=== PATIENT | female | born 1975 | race Caucasian/White ===

== ENCOUNTER → 2016-03-28 | Outpatient (CLI) | payer BC ==
[2016-03-28 17:35] LABS: Basophils % (A) 1 %; CH 31.6; CHCM 33.4; Eosinophils # (A) 0.1 k/uL (0-0.7); Eosinophils % (A) 1 %; HCT 41.4 % (34.0-46.0); HDW 2.54; HGB 13.5 gm/dL (11.4-16.0); Luc # (Auto) 0.16; Luc % (Auto) 2; Lymphocytes # (A) 2.1 k/uL (1.0-4.8); Lymphocytes % (A) 29 %; MCH 31.1 pg (25.0-35.0); MCHC 32.7 g/dL (31.0-37.0); Mean Platelet Volume 7.1; Monocytes # (A) 0.4 k/uL (0-1.0); Monocytes % (A) 6 %; Neutrophils # (A) 4.5 k/uL (1.3-7.7); Neutrophils % (A) 62 %; RBC 4.36 m/uL (3.80-5.40); RDW 12.1 % (11.5-15.5); WBC 7.3 k/uL (3.8-10.6); WBC (Perox) 7.78
== END | disposition home or self-care (01) ==
LOC: LABWHC1 16:40
PROVIDERS: ATTEND Obstetrics & Gynecology
DX: Z01.812 Encounter for preprocedural laboratory examination (principal); N92.0 Excessive and frequent menstruation with regular cycle; Z64.0 Problems related to unwanted pregnancy
CPT/HCPCS: 36415; 85025

== ENCOUNTER 2016-04-01 10:09 | Day surgery (SDC) | payer BC ==
[2016-03-29 09:13] VITALS: BMI 23.0
[~2016-04-01 10:09] MED LIST: DEXAMETHASONE SOD PHOSPHATE 10 MG/ML 1 ML VIAL IV ONE; LACTATED RINGERS 1,000 ML IV ONE; LIDOCAINE 1% 20 ML VIAL (10MG/ML) FOR IV START INTRADERMA PRN; ONDANSETRON 4 MG/2 ML VIAL IVP ONE; Pre Op ABX Message 1 EACH MISC MISCELLANE ONE; SCOPOLAMINE 1.5MG/72HR PATCH TRANSDERM ONE
[2016-04-01 10:37] VITALS: RESP 16
[2016-04-01] MEDS ORDERED: LIDOCAINE 1% 20 ML VIAL (10MG/ML) FOR IV START INTRADERMA ONE (10:41)
[2016-04-01] MEDS ORDERED: LIDOCAINE 1% INJ 10MG/ML (20 ML MDV) ONE (10:54)
[2016-04-01] MEDS ORDERED: ROCURONIUM BROMIDE 10 MG/ML 10 ML VIAL IV ONE (10:54)
[2016-04-01] MEDS ORDERED: NEOSTIGMINE 1 MG/ML 10 ML VIAL ONE (10:54)
[2016-04-01] MEDS ORDERED: fentaNYL (PF) 50 MCG/ML 2 ML AMP ONE (10:54)
[2016-04-01] MEDS ORDERED: GLYCOPYRROLATE 0.2 MG/ML 2 ML VIAL ONE (10:54)
[2016-04-01] MEDS ORDERED: PROPOFOL 10 MG/ML 20 ML VIAL IV ONE (10:54)
[2016-04-01] MEDS ORDERED: KETOROLAC 30 MG/ML 1 ML VIAL ONE (10:54)
[2016-04-01] MEDS ORDERED: MIDAZOLAM 2 MG/2 ML VIAL ONE (10:54)
[2016-04-01] MEDS ORDERED: SUCCINYLCHOLINE CHLORIDE 100 MG/5 ML SYR IV ONE (10:54)
[2016-04-01] MEDS ORDERED: BUPIVACAIN-EPI 0.25%-1:200,000 30 ML VIAL SQ ONE ×2 (11:23→11:33)
--- NOTE | 2016-04-01 11:43 | P.OP ---
Date of Procedure: 04/01/16 Preoperative Diagnosis: Undesired fertility, hypermenorrhea. Postoperative Diagnosis: Same, normal-appearing female anatomy Procedure(s) Performed: Hysteroscopy, D&C, NovaSure ablation, laparoscopic tubal ligation with Filshie clips Anesthesia: JUSTIN Surgeon: Rach Sotelo Estimated Blood Loss (ml): 15 IV fluids (ml): 450 Urine output (ml): 150 Pathology: other (Uterine curettings) Condition: stable Disposition: PACU Description of Procedure: Patient is brought to the operating suite where the appropriate timeout is performed. Urine hCG is negative. The proper procedure patient are all identified. Patient is placed in the dorsal lithotomy position after general anesthetic is administered without difficulty. The abdomen and perineal body are prepped and draped in usual sterile fashion. The bladder is drained for approximately 150 mL of clear yellow urine. Examination under anesthesia reveals a small retroverted uterus, negative adnexa bilaterally. Weighted speculum was placed into the vagina and a double-tooth tenaculum is used to grasp the anterior lip of the cervix. Uterine depth is only 6 cm. Uterine length is 2 cm. The cervix was gently and systematically dilated with Hanks dilators. Hysteroscope was introduced and saline is infused. Cavity is distended and inspected, normal proliferative appearing tissue was noted, no obvious polyps fibroids or defects. Hysteroscope was removed. Cervix is then dilated to bolus extents and a small sharp curette is used to curettage the cavity for a small to moderate amount of tissue, sent to pathology for evaluation. NovaSure wand is then introduced seated and enabled. Uterine length 4.0 cm, width 2.5 cm. For 90 seconds and a power 55 W the procedure is carried out. When the machine turns off the wand is reduced and removed. Hysteroscope was once again introduced and the cavity is noted to be uniformly blanched. Double-tooth tenaculum is once again on the anterior lip of the cervix, the acorn cannula is placed into the cervical canal and attached to the tenaculum. Attention is then drawn to the abdomen. A small infraumbilical incision is made. There is needle was placed and placement was checked with hanging drop technique. Abdomen is insufflated under low filling pressures of approximate 6 mmHg for total of 3.5 L of CO2 gas. Veress needle was removed. Trocar is placed and placement is noted to be atraumatic. Patient is then placed in Trendelenburg position, a second incision is made suprapubically, a second trocar is placed under direct visualization and again) atraumatic. Uterus is then placed and anteverted lateral traction. The right fallopian tube is visualized to its fimbriated end, and a Filshie clip is placed in the isthmic portion of the tube, with care to traverse the entire diameter of the tube into the mesal salpinx. When this is completed, the same procedure is carried out on the left tube, again fimbriated end identified for proper placement, and clip all the way through the isthmic portion of the tube into the mesal salpinx. Bilateral ovaries are inspected and noted to be normal. Inspection of the rest of the abdomen and pelvis is negative. There are no adhesions, no evidence of endometriosis. The CO2 gas was allowed to diffuse. The trochars are removed under direct visualization and the fascial defects are clean and dry. The small incisions are closed with 4-0 Vicryl suture. Steri- Strips and Mastisol are applied to the wound. Instrumentation is removed from the vagina and the cervix is noted to be clean and dry. A padded is placed. All sponge needle and enhancement counts are correct at the end of the procedure. Patient is brought back to the recovery room in stable condition with vital signs including blood pressure of 120/69, pulse 58, 100% O2 saturation. Toradol is given prior to leaving the operative suite.
[2016-04-01 12:03] VITALS: TEMP 97.2
[2016-04-01] MEDS: HYDROmorphone 1 MG/ML 1 ML SYRINGE IVP PRN ×2 (12:03→12:12)
[2016-04-01 14:02] VITALS: BP 145/80; PULSE 46
== END 2016-04-01 15:15 | disposition home or self-care (01) ==
LOC: OR 10:09
PROVIDERS: ATTEND Obstetrics & Gynecology
DX: N92.0 Excessive and frequent menstruation with regular cycle (principal); Z30.2 Encounter for sterilization; N85.8 Other specified noninflammatory disorders of uterus; N85.00 Endometrial hyperplasia, unspecified; Z88.1 Allergy status to other antibiotic agents
CPT/HCPCS: 81025; 88305; 58558; 58671; J2250; J1100; J2710; J2405; J2001; J3010; J1885; J1170; J0330; J2704

== ENCOUNTER 2016-12-26 06:59 | Day surgery (SDC) | payer BC ==
[2016-12-24 15:06] VITALS: BMI 22.3
[~2016-12-26 06:59] MED LIST changes: -DEXAMETHASONE SOD PHOSPHATE 10 MG/ML 1 ML VIAL IV ONE; -LACTATED RINGERS 1,000 ML IV ONE; +LACTATED RINGERS 1,000 ML IV SCH; -LIDOCAINE 1% 20 ML VIAL (10MG/ML) FOR IV START INTRADERMA PRN; -ONDANSETRON 4 MG/2 ML VIAL IVP ONE; -Pre Op ABX Message 1 EACH MISC MISCELLANE ONE; -SCOPOLAMINE 1.5MG/72HR PATCH TRANSDERM ONE
[2016-12-26 07:14] VITALS: TEMP 97.1
[2016-12-26] MEDS ORDERED: LIDOCAINE 1% INJ 10MG/ML (20 ML MDV) ONE (07:45)
[2016-12-26] MEDS ORDERED: GLYCOPYRROLATE 0.2 MG/ML 2 ML VIAL ONE (07:45)
[2016-12-26] MEDS ORDERED: PROPOFOL 10 MG/ML 20 ML VIAL IV ONE (07:45)
--- NOTE | 2016-12-26 07:51 | P.GSHP ---
History of Present Illness H&P Date: 12/26/16 Chief Complaint: History of colon polyps, diarrhea 's is a 41-year-old female who presents today for colonoscopy. She's had issues with diarrhea. Patient a previous colonoscopy 3 years ago which showed adenomatous polyps. 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, colon polyps, irregular periods History of Any Multi-Drug Resistant Organisms: None Reported Past Surgical History: Appendectomy, Section, Tubal Ligation Additional Past Surgical History / Comment(s): kidney(ureter) surgery as an infant, CS x2 Past Anesthesia/Blood Transfusion Reactions: No Reported Reaction Smoking Status: Never smoker - Past Family History Mother Family Medical History: Cancer Additional Family Medical History / Comment(s): stomach cancer Medications and Allergies Home Medications Medication Instructions Recorded Confirmed Type Ibuprofen [Motrin] 200 - 400 mg PO Q6HR PRN 03/29/16 12/26/16 History L.acidoph,Paracasei, B.lactis 1 each PO DAILY 12/24/16 12/26/16 History [Probiotic] Multivitamins, Thera [Multivitamin 1 tab PO DAILY 12/24/16 12/26/16 History (formulary)] Allergies Allergy/AdvReac Type Severity Reaction Status Date / Time nitrofurantoin Allergy Rash/Hives Verified 12/24/16 14:51 [From Macrobid] Surgical - Exam Vital Signs Temp Pulse Resp BP Pulse Ox 97.1 F L 65 20 110/61 99 12/26/16 07:13 12/26/16 07:13 12/26/16 07:13 12/26/16 07:13 12/26/16 07:13 - General well developed, no distress - Eyes PERRL - ENT normal pinna - Neck no masses - Respiratory normal expansion - Cardiovascular Rhythm: regular - Abdomen Abdomen: soft, non tender Assessment and Plan Plan: History of colon polyps, diarrhea. We'll perform colonoscopy.
--- NOTE | 2016-12-26 08:11 | P.OP ---
Date of Procedure: 12/26/16 Preoperative Diagnosis: Diarrhea History of colon polyps Postoperative Diagnosis: External hemorrhoids Normal colonoscopy Random rectal biopsy Procedure(s) Performed: Colonoscopy Anesthesia: MAC Surgeon: Ever Miranda Pathology: other (Rectum) Condition: stable Disposition: PACU Description of Procedure: The patient's placed on the endoscopy table lateral position. She received IV sedation. Digital rectal exam was performed which revealed external hemorrhoids. The flexible colonoscope was then placed patient anus passed throughout the entire colon. The ileocecal valve was not clearly visualized. Several times remained to see the valve however due to tortuosity valve scope could not be placed into the area ileocecal valve. Scope was then withdrawn and the right colon transverse colon and descending colon appeared normal. The sigmoid colon was normal. The scope was then brought back the rectum and this appeared normal. Due the patient's complaints of diarrhea a random biopsies performed. Scope was then withdrawn and the external hemorrhoids were noted at the anus.
[2016-12-26] MEDS ORDERED: HYDROmorphone 1 MG/ML 1 ML SYRINGE IVP ONE (09:14)
[2016-12-26 09:44] VITALS: BP 113/74; PULSE 57; RESP 16
[2016-12-26] MEDS ORDERED: ONDANSETRON 4 MG/2 ML VIAL IVP ONE (10:00)
== END 2016-12-26 10:36 | disposition home or self-care (01) ==
LOC: ORWHC2ENDO 06:59
PROVIDERS: ATTEND Surgery
DX: R19.7 Diarrhea, unspecified (principal); K64.4 Residual hemorrhoidal skin tags; Z86.010 Personal history of colon polyps; Q43.8 Other specified congenital malformations of intestine; Z80.0 Family history of malignant neoplasm of digestive organs; Z88.1 Allergy status to other antibiotic agents
CPT/HCPCS: 81025; 88305; 45380; J2405; J2001; J1170; J2704

== ENCOUNTER 2017-01-24 01:39 | Emergency (ER) | payer BC ==
[2017-01-24 01:44] VITALS: RESP 16
[2017-01-24] MEDS ORDERED: KETOROLAC 30 MG/ML 1 ML VIAL IVP STA (02:09)
[2017-01-24] MEDS ORDERED: ONDANSETRON 4 MG/2 ML VIAL IVP STA (02:10)
--- NOTE | 2017-01-24 02:10 | ED ---
Abdominal Pain HPI - General Chief Complaint: Abdominal Pain Stated Complaint: ABD Pain, Back Pain Time Seen by Provider: 01/24/17 01:53 Source: patient Mode of arrival: ambulatory Limitations: no limitations - History of Present Illness Initial Comments: this patient is a 41-year-old woman who presents to be evaluated for lower abdominal pain. The patient relates that she has been having a few months of lower abdominal pains, that are intermittent, usually lasting from 10 minutes to one hour. Starting last night about 4-5 hours ago the pain became more constant. she states the pain is suprapubic. It is aching or cramping. This currently moderate intensity. Tonight it is accompanied by nausea. She has not noted any worsening or relieving factors. She does note that she has seen her division director, Dr. Sotelo who told her that her exam was normal, but did send a urine culture and has not heard the results of the urine culture. 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 One of her sections was complicated by injury to the bladder wall. Since that time the patient states she has intermittently had blood in her urine. MD Complaint: abdominal pain -: month(s) Location: suprapubic Radiation: back Migration to: no migration Severity: moderate Quality: aching Consistency: intermittent Improves With: nothing Worsens With: nothing Associated Symptoms: nausea - Related Data Home Medications Medication Instructions Recorded Confirmed Ibuprofen [Motrin] 200 - 400 mg PO Q6HR PRN 03/29/16 12/26/16 L.acidoph,Paracasei, B.lactis 1 each PO DAILY 12/24/16 12/26/16 [Probiotic] Multivitamins, Thera [Multivitamin 1 tab PO DAILY 12/24/16 12/26/16 (formulary)] Previous Rx's Medication Instructions Recorded Acetaminophen-Codeine 300-30mg 1 tab PO Q4H PRN #12 tablet 01/24/17 [Tylenol w/codeine #3] Ondansetron Odt [Zofran ODT] 4 mg PO Q8HR PRN #10 tab 01/24/17 Allergies Allergy/AdvReac Type Severity Reaction Status Date / Time nitrofurantoin Allergy Rash/Hives Verified 01/24/17 01:44 [From Macrobid] Review of Systems ROS Statement: Those systems with pertinent positive or pertinent negative responses have been documented in the HPI. ROS Other: All systems not noted in ROS Statement are negative. Constitutional: Denies: fever, chills Respiratory: Denies: cough, dyspnea Cardiovascular: Denies: chest pain, palpitations Gastrointestinal: Reports: abdominal pain, nausea. Denies: vomiting, diarrhea, constipation, melena, hematochezia Genitourinary: Reports: as per HPI, hematuria. 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, colon polyps, irregular periods History of Any Multi-Drug Resistant Organisms: None Reported Past Surgical History: Appendectomy, Section, Tubal Ligation Additional Past Surgical History / Comment(s): kidney(ureter) surgery as an infant, CS x2 Past Anesthesia/Blood Transfusion Reactions: No Reported Reaction Past Psychological History: No Psychological Hx Reported Smoking Status: Never smoker - Past Family History Mother Family Medical History: Cancer General Exam Limitations: no limitations General appearance: alert, in no apparent distress Head exam: Present: atraumatic, normocephalic Eye exam: Present: normal appearance. Absent: scleral icterus, conjunctival injection ENT exam: Present: normal oropharynx Neck exam: Present: normal inspection, full ROM Respiratory exam: Present: normal lung sounds bilaterally. Absent: respiratory distress, wheezes, rales, rhonchi, stridor Cardiovascular Exam: Present: regular rate, normal rhythm, normal heart sounds. Absent: systolic murmur, diastolic murmur, rubs, gallop GI/Abdominal exam: Present: soft, normal bowel sounds. Absent: distended, tenderness, guarding, rebound, rigid, organomegaly, mass, pulsatile mass, hernia Extremities exam: Present: normal inspection, normal capillary refill. Absent: pedal edema, calf tenderness Back exam: Present: normal inspection. Absent: CVA tenderness (R), CVA tenderness (L) Neurological exam: Present: alert Skin exam: Present: warm, dry, intact, normal color. Absent: rash Course Vital Signs 01/24/17 01:41 Temperature 97.6 F Pulse Rate 68 Respiratory 16 Rate Blood Pressure 146/77 O2 Sat by Pulse 100 Oximetry Medical Decision Making - Medical Decision Making this patient is a 41-year-old woman with intermittent pelvic pain that has become more consistent tonight. She has had relief of the pain and nausea with medication. Her exam is benign. At this point it seems like imaging with ultrasound would be indicated, and the patient is given prescription to come back and have this during the day. Discussed return parameters and appropriate follow-up. - Lab Data Result diagrams: 01/24/17 01:53 01/24/17 01:53 Lab Results 01/24/17 01/24/17 01/24/17 Range/Units 01:53 01:53 02:30 WBC 9.5 (3.8-10.6) k/uL RBC 4.38 (3.80-5.40) m/uL Hgb 13.4 (11.4-16.0) gm/dL Hct 41.0 (34.0-46.0) % MCV 93.7 (80.0-100.0) fL MCH 30.6 (25.0-35.0) pg MCHC 32.6 (31.0-37.0) g/dL RDW 13.5 (11.5-15.5) % Plt Count 356 (150-450) k/uL Neutrophils % 54 % Lymphocytes % 36 % Monocytes % 5 % Eosinophils % 2 % Basophils % 1 % Neutrophils # 5.2 (1.3-7.7) k/uL Lymphocytes # 3.4 (1.0-4.8) k/uL Monocytes # 0.5 (0-1.0) k/uL Eosinophils # 0.2 (0-0.7) k/uL Basophils # 0.1 (0-0.2) k/uL Sodium 138 (137-145) mmol/L Potassium 3.9 (3.5-5.1) mmol/L Chloride 104 (98-107) mmol/L Carbon Dioxide 26 (22-30) mmol/L Anion Gap 8 mmol/L BUN 18 H (7-17) mg/dL Creatinine 1.20 H (0.52-1.04) mg/dL Est GFR (MDRD) Af Amer 60 (>60 ml/min/1.73 sqM) Est GFR (MDRD) Non-Af 49 (>60 ml/min/1.73 sqM) Glucose 102 H (74-99) mg/dL Calcium 9.3 (8.4-10.2) mg/dL Total Bilirubin 0.2 (0.2-1.3) mg/dL AST 26 (14-36) U/L ALT 33 (9-52) U/L Alkaline Phosphatase 53 (38-126) U/L Total Protein 7.3 (6.3-8.2) g/dL Albumin 4.3 (3.5-5.0) g/dL Amylase 84 (30-110) U/L Lipase 193 (23-300) U/L Urine Color Colorless Urine Appearance Clear (Clear) Urine pH 6.0 (5.0-8.0) Ur Specific [place] 1.003 (1.001-1.035) Urine Protein Negative (Negative) Urine Glucose (UA) Negative (Negative) Urine Ketones Negative (Negative) Urine Blood Negative (Negative) Urine Nitrite Negative (Negative) Urine Bilirubin Negative (Negative) Urine Urobilinogen <2.0 (<2.0) mg/dL Ur Leukocyte Esterase Negative (Negative) Disposition Clinical Impression: Abdominal pain Disposition: HOME SELF-CARE Condition: Good Instructions: Abdominal Pain (ED) Prescriptions: Acetaminophen-Codeine 300-30mg [Tylenol w/codeine #3] 1 tab PO Q4H PRN #12 tablet PRN Reason: Pain Ondansetron Odt [Zofran ODT] 4 mg PO Q8HR PRN #10 tab PRN Reason: Nausea Referrals: Michi Trotter MD [Primary Care Provider] - 1-2 days
[2017-01-24 02:22] LABS: Basophils # (A) 0.1 k/uL (0-0.2); Basophils % (A) 1 %; CH 31.1; CHCM 33.3; Eosinophils # (A) 0.2 k/uL (0-0.7); Eosinophils % (A) 2 %; HDW 2.29; HGB 13.4 gm/dL (11.4-16.0); Luc # (Auto) 0.24; Luc % (Auto) 3; Lymphocytes # (A) 3.4 k/uL (1.0-4.8); Lymphocytes % (A) 36 %; MCH 30.6 pg (25.0-35.0); MCHC 32.6 g/dL (31.0-37.0); MCV 93.7 fL (80.0-100.0); Mean Platelet Volume 7.3; Monocytes # (A) 0.5 k/uL (0-1.0); Monocytes % (A) 5 %; Neutrophils # (A) 5.2 k/uL (1.3-7.7); Neutrophils % (A) 54 %; RBC 4.38 m/uL (3.80-5.40); RDW 13.5 % (11.5-15.5); WBC 9.5 k/uL (3.8-10.6)
[2017-01-24 02:31] LABS: Calcium 9.3 mg/dL (8.4-10.2); Potassium 3.9 mmol/L (3.5-5.1); Total Bilirubin 0.2 mg/dL (0.2-1.3); Total Protein 7.3 g/dL (6.3-8.2)
--- NOTE | 2017-01-24 02:34 | XR ---
EXAMINATION TYPE: XR KUB DATE OF EXAM: 01/24/2017 COMPARISON: NONE HISTORY: Abdominal pain TECHNIQUE: 2 views FINDINGS: There is no sign of intestinal obstruction or pneumoperitoneum. Fecal pattern is normal. Th ere are clips from tubal ligation. There is no sign of a mass. There are no pathologic calcifications . Lung bases are clear. IMPRESSION: Nonacute abdomen.
[2017-01-24 02:42] LABS: Appearance,Urine Clear (Clear); Bilirubin,Urine Negative (Negative); Glucose,Urine (UA) Negative (Negative); Ketones,Urine Negative (Negative); Leukocyte Esterase,Urine Negative (Negative); Nitrite,Urine Negative (Negative); Protein,Urine Negative (Negative); Specific Gravity,Urine 1.003 (1.001-1.035); UA Billing (MACRO vs. MICRO) CHEM; Urobilinogen,Urine <2.0 mg/dL (<2.0)
[2017-01-24 03:09] VITALS: BP 103/65; PULSE 60; TEMP 98
== END 2017-01-24 03:10 | disposition home or self-care (01) ==
LOC: EC 01:39
DX: R10.2 Pelvic and perineal pain (principal); R11.0 Nausea; M54.9 Dorsalgia, unspecified; Z79.899 Other long term (current) drug therapy; Z88.8 Allergy status to other drugs, medicaments and biological substances; Z90.49 Acquired absence of other specified parts of digestive tract; Z98.51 Tubal ligation status
CPT/HCPCS: 36415; 80053; 82150; 83690; 85025; 81003; 74000; 99284; 96374; 96375; J2405; J1885; 76830; 76856

== ENCOUNTER → 2017-01-24 | Outpatient (CLI) | payer BC ==
--- NOTE | 2017-01-24 16:20 | US ---
EXAMINATION TYPE: US pelvis complete transvag DATE OF EXAM: 01/24/2017 COMPARISON: NONE CLINICAL HISTORY: Pelvic Pain R10.2. Tubal ligation and endometrial ablation March 2016. Spotting TECHNIQUE: Transvaginal (TV) and Transabdominal (TA) Date of LMP: August 2016 EXAM MEASUREMENTS: Uterus: 12.6 x 5.1 x 6.5 cm Endometrial Stripe: 0.4 cm Right Ovary: 2.4 x 1.5 x 1.5 cm Left Ovary: 2.3 x 1.6 x 1.5 cm 1. Uterus: Retroverted 2. Endometrium: Large amount of Fluid/Debris within the endometrium extending in to the cervix. 3. Right Ovary: Follicle visualized measuring 1.0 x 0.6 x 0.9 cm 4. Left Ovary: Follicle visualized measuring 1.1 x 0.6 x 0.6 cm 5. Bilateral Adnexa: wnl 6. Posterior cul-de-sac: wnl IMPRESSION: 1. Fluid and Debris-filled mid endometrial canal.
== END | disposition home or self-care (01) ==
LOC: RADUSWWP 12:59
PROVIDERS: ATTEND Emergency Medicine
DX: N85.8 Other specified noninflammatory disorders of uterus (principal); R10.2 Pelvic and perineal pain
CPT/HCPCS: 76830; 76856

== ENCOUNTER → 2020-08-25 | Outpatient (CLI) | payer BC ==
--- NOTE | 2020-09-14 11:10 | HM ---
This is a 14 day event monitor report. Baseline rhythm is sinus with episodes of sinus bradycardia and sinus tachycardia. Occasional APCs noted with rare couplets of APCs. Patient did not report any cardiac symptoms, no supraventricular or ventricular arrhythmias of significance noted. Final impression 1. Sinus rhythm. #2 episodes of sinus bradycardia with heart rates as low as 41. #2 episodes of sinus tachycardia with heart rates of up to 1:30. #3 occasional APCs. #4. Patient did not report any cardiac symptoms. MTDD
== END | disposition home or self-care (01) ==
LOC: RADECHMAIN 12:30
PROVIDERS: ATTEND Psychiatry & Neurology Neurology
DX: I49.1 Atrial premature depolarization (principal); R00.0 Tachycardia, unspecified
CPT/HCPCS: 93270

== ENCOUNTER → 2020-08-25 | Outpatient (CLI) | payer BC ==
[2020-08-25 18:56] LABS: Basophils # (A) 0.04 X 10*3/uL (0.00-0.10); Basophils % (A) 0.7 %; Eosinophils # (A) 0.14 X 10*3/uL (0.04-0.35); Eosinophils % (A) 2.6 %; HCT 41.2 % (37.2-46.3); HGB 13.7 g/dL (12.0-15.0); Lymphocytes # (A) 2.01 X 10*3/uL (0.90-5.00); Lymphocytes % (A) 36.9 %; MCH 30.9 pg (27.0-32.0); MCHC 33.3 g/dL (32.0-37.0); MCV 92.8 fL (80.0-97.0); Mean Platelet Volume 9.8 fL (9.5-12.2); Monocytes # (A) 0.31 X 10*3/uL (0.20-1.00); Monocytes % (A) 5.7 %; Neutrophils # (A) 2.94 X 10*3/uL (1.80-7.70); Neutrophils % (A) 53.9 %; Platelet Count 274 X 10*3/uL (140-440); RBC 4.44 X 10*6/uL (4.10-5.20); RDW 12.1 % (11.5-14.5); WBC 5.45 X 10*3/uL (4.50-10.00)
[2020-08-25 21:11] LABS: African American GFR (CKD) 62.8 (60.0-200.0); Albumin 4.6 g/dL (3.80-4.90); Albumin/Globulin Ratio 1.77 (1.60-3.17); BUN/Creat Ratio 19.17 Ratio (12.00-20.00); Calcium 10.7 mg/dL (8.7-10.3); Globulin 2.6 g/dL (1.6-3.3); Magnesium 1.8 mg/dL (1.5-2.4); Non-African American GFR(CKD) 54.2 (60.0-200.0); Potassium 3.9 mmol/L (3.5-5.5); Total Bilirubin 0.7 mg/dL (0.2-1.2); Total Protein 7.2 g/dL (6.2-8.2)
== END | disposition home or self-care (01) ==
LOC: LABWHC1 13:02
PROVIDERS: ATTEND Psychiatry & Neurology Neurology
DX: Z00.00 Encounter for general adult medical examination without abnormal findings (principal); R53.83 Other fatigue; R06.00 Dyspnea, unspecified; R53.1 Weakness
CPT/HCPCS: 36415; 80053; 82306; 82550; 82607; 83735; 85025

== ENCOUNTER 2020-11-14 07:44 | Day surgery (SDC) | payer BC ==
[2020-11-08 14:23] VITALS: BMI 22.8
[~2020-11-14 07:44] MED LIST changes: -LACTATED RINGERS 1,000 ML IV SCH; +SODIUM CHLORIDE 0.9% 1,000 ML IV SCH
[2020-11-14 08:04] VITALS: RESP 16; TEMP 97.8
[2020-11-14] MEDS ORDERED: SODIUM CHLORIDE 0.9% 1,000 ML IV ONE (08:04)
[2020-11-14 09:36] VITALS: BP 111/74; PULSE 46
--- NOTE | 2020-11-16 17:08 | P.EPPROC ---
- EP Procedure Note Electrophysiology Procedure Note: Diagnosis Recurrent syncope and presyncope Twelve-lead EKG shows sinus rhythm normal [place] narrow QRS left axis deviation QT interval is 440 ms and a heart rate of 46 beats a minute Tilt table test per protocol This time blood pressure 115/67 mmHg Baseline heart rate 45 beats a minute Patient was tilted upright at an angle of 70 per protocol This is a 15 mmHg drop in systolic blood pressure immediately After 10-12 minutes was a sudden drop in blood pressure with a mild increase in heart rate 84 beats a minute. Low-dose blood pressure recorded was 60 mmHg She almost passed out and was placed supine she was laid supine her blood pressure normalized 118/66 mmHg Impression Neurocardiogenic syncope
== END 2020-11-14 10:10 | disposition home or self-care (01) ==
LOC: CATHEP 07:44
PROVIDERS: ATTEND Internal Medicine Clinical Cardiac Electrophysiology
DX: R55 Syncope and collapse (principal); R00.1 Bradycardia, unspecified; Z88.1 Allergy status to other antibiotic agents
CPT/HCPCS: 93660

== ENCOUNTER → 2022-10-30 | Outpatient (CLI) | payer BC ==
[2022-10-30 11:29] LABS: Chol/HDL Ratio 3.35 Ratio; LDL Cholesterol,Calculated 164.3 mg/dL (0.0-131.0)
[2022-10-30 11:30] LABS: ALT 24 U/L (8-44); AST 24 U/L (13-35); Albumin 4.7 d/dL (3.8-4.9); Albumin/Globulin Ratio 1.88 Ratio (1.60-3.17); Alkaline Phosphatase 63 U/L (41-126); BUN/Creat Ratio 16.55 Ratio (12.00-20.00); Blood Urea Nitrogen 18.2 mg/dL (9.0-27.0); Carbon Dioxide 26.3 mmol/L (21.6-31.8); Chloride 104 mmol/L (96-109); Globulin 2.5 d/dL (1.6-3.3); Glucose 97 mg/dL (70-110); Magnesium 2.1 mg/dL (1.5-2.4); Potassium 4.3 mmol/L (3.5-5.5); Sodium 140 mmol/L (135-145); Total Bilirubin 0.2 mg/dL (0.3-1.2); Total Protein 7.2 d/dL (6.2-8.2)
[2022-10-30 12:15] LABS: HCT 42.9 % (37.2-46.3); HGB 13.9 d/dL (12.0-15.0); MCHC 32.4 d/dL (32.0-37.0); MCV 92.7 FL (80.0-97.0); Mean Platelet Volume 9.8 FL (9.5-12.2); NRBC Per 100 WBC 0 X 10*3/uL (0.00-0.01); Platelet Count 284 X 10*3/uL (140-440); RBC 4.63 X 10*6/uL (4.10-5.20); WBC 4.62 X 10*3/uL (4.50-10.00)
== END | disposition home or self-care (01) ==
LOC: LABWHC1 08:15
PROVIDERS: ATTEND Nurse Practitioner Adult Health
DX: E78.5 Hyperlipidemia, unspecified (principal); R55 Syncope and collapse
CPT/HCPCS: 36415; 80053; 80061; 83735; 84443; 85027